=== PATIENT | female | born 1960 | race Caucasian/White ===

== ENCOUNTER 2017-11-08 14:31 | Emergency (ER) | payer BC | END 2017-11-08 16:07 | disposition home or self-care (01) | LOC: SCSER 14:31 | DX: B34.9 Viral infection, unspecified (principal) | CPT/HCPCS: 99283 ==

== ENCOUNTER 2017-11-26 11:50 | Outpatient (CLI) | payer BC | END 2017-11-26 11:51 | disposition home or self-care (01) | LOC: BICRAD 11:50 | PROVIDERS: ATTEND Nurse Practitioner Family | DX: M25.551 Pain in right hip (principal); M16.11 Unilateral primary osteoarthritis, right hip ==

== ENCOUNTER 2017-11-28 16:06 | Outpatient (CLI) | payer BC ==
--- NOTE | 2017-11-29 09:40 | MRI ---
RIGHT HIP MRI WITHOUT IV CONTRAST: HISTORY: A 57-year-old female with pain in the right hip radiating to right groin with concern for a labral te ar. FINDINGS: Multiplanar, multisequence MRI examination of the right hip is performed. There are some gluteus min imus and gluteus medius insertional tendinopathy changes. There is some abnormal linear high signal associated with the anterior labrum concerning for a labral tear. No evidence for avascular necrosis , fracture, or acute stress injury. IMPRESSION: Evidence for an anterior labral tear right gluteus minimus and gluteus minimus insertional tendinopat hy. No significant abnormal marrow signal. POS: [facility]
== END 2017-11-28 16:07 | disposition home or self-care (01) ==
LOC: MRI 16:06
PROVIDERS: ATTEND Family Medicine
DX: S73.101A Unspecified sprain of right hip, initial encounter (principal); M76.01 Gluteal tendinitis, right hip

== ENCOUNTER 2018-03-10 14:39 | Outpatient (CLI) | payer BC | END 2018-03-10 14:40 | disposition home or self-care (01) | LOC: BICMAMMO 14:39 | PROVIDERS: ATTEND Family Medicine | DX: Z12.31 Encounter for screening mammogram for malignant neoplasm of breast (principal); M85.89 Other specified disorders of bone density and structure, multiple sites; R92.1 Mammographic calcification found on diagnostic imaging of breast; Z85.3 Personal history of malignant neoplasm of breast | CPT/HCPCS: 77063; 77067; 77080 ==

== ENCOUNTER 2018-09-16 09:52 | Outpatient (CLI) | payer BC ==
--- NOTE | 2018-09-17 13:34 | RAD ---
MODIFIED BARIUM SWALLOW WITH A SPEECH THERAPIST: Date: 09/16/18 HISTORY: Other dysphagia. non-Hodgkin's lymphoma and Sjogren's disease. FINDINGS/IMPRESSION: A modified barium swallow was performed by the speech therapist. A video was performed. No aspiration or penetration was seen during the examination. Please see dedicated speech therapy report for speci fic findings and recommendations. POS: [facility]
== END 2018-09-16 09:53 | disposition home or self-care (01) ==
PROVIDERS: ATTEND Internal Medicine
DX: R13.19 Other dysphagia (principal); C85.90 Non-Hodgkin lymphoma, unspecified, unspecified site; M35.00 Sjogren syndrome, unspecified
CPT/HCPCS: 74230; G8996-GN-CI; G8997-GN-CH; G8998-GN-CI